=== PATIENT | female | born 1990 | race Hispanic/Latino ===

== ENCOUNTER 2017-07-24 19:47 | Emergency (ER) | payer MEDICAID ==
[2017-07-24] MEDS ORDERED: ONDANSETRON HCL MDV 20ML 2 MG/ML VIAL ONE (20:48)
[2017-07-24] MEDS ORDERED: SODIUM CHLORIDE 0.9% 1000ML 1,000 ML IV ONE (20:49)
[2017-07-24 20:55] LABS: BASOPHILS % (AUTO) 0.6 % (0.0-5.0); EOSINOPHILS % (AUTO) 0.7 % (0.0-8.0); HEMATOCRIT 32.5 % (36-48); LYMPHOCYTES % (AUTO) 20.8 % (21.0-51.0); MEAN CORPUSCULAR VOLUME 70.4 fL (79-99); NEUTROPHILS % (AUTO) 72.9 % (40.0-77.0); PLATELET COUNT (AUTO) 434 K/uL (130-400); RED BLOOD CELL COUNT(AUTO) 4.62 MIL/uL (4.00-5.50); RED CELL DISTRIBUTION WIDTH 16.4 % (11.0-15.5)
[2017-07-24 21:04] LABS: BILIRUBIN,URINE Negative (NEGATIVE); COLOR,URINE Yellow (YELLOW); GLUCOSE, URINE (UA) Negative (NEGATIVE); KETONES,URINE Trace mg/dL (NEGATIVE); LEUKOCYTE ESTERASE ,URINE Negative (NEGATIVE); NITRATE,URINE Negative (NEGATIVE); OCCULT BLOOD,URINE Negative (NEGATIVE); PH,URINE 6.5 (5.0-8.0); PROTEIN,URINE Negative (NEGATIVE)
[2017-07-24 21:05] LABS: CREATININE 0.4 mg/dL (0.5-1.5); POTASSIUM 3.9 mmol/L (3.5-5.1)
[2017-07-24 21:06] LABS: APPEARANCE,URINE CLEAR (CLEAR)
[2017-07-24 21:10] LABS: ALBUMIN 2.4 g/dL (3.5-5.0); BILIRUBIN,TOTAL 0.3 mg/dL (0.2-1.0); TOTAL PROTEIN, SERUM 7.4 g/dL (6.0-8.3)
== END 2017-07-24 23:14 | disposition home or self-care (01) ==
LOC: EDH 19:47
DX: O21.0 Mild hyperemesis gravidarum (principal); Z3A.35 35 weeks gestation of pregnancy
CPT/HCPCS: 36415; 80053; 81003; 85025; 96361; 96374; 99285; J7030

== ENCOUNTER 2017-08-23 18:05 | Inpatient (IN) | payer MEDICAID ==
[~2017-08-23] VITALS: Ht 152.4 cm; Wt 89.8 kg
[2017-08-23 20:00] LABS: APPEARANCE,URINE Clear (CLEAR); BILIRUBIN,URINE Negative (NEGATIVE); COLOR,URINE Yellow (YELLOW); GLUCOSE, URINE (UA) Negative (NEGATIVE); KETONES,URINE 15 mg/dL (NEGATIVE); LEUKOCYTE ESTERASE ,URINE Trace (NEGATIVE); NITRATE,URINE Negative (NEGATIVE); OCCULT BLOOD,URINE Negative (NEGATIVE); PH,URINE 5.5 (5.0-8.0); PROTEIN,URINE Negative (NEGATIVE)
[2017-08-23 20:13] LABS: BACTERIA,URINE Few /HPF (None Seen); MUCUS,URINE Few LPF (None Seen)
[2017-08-23 20:14] LABS: RBC,URINE None Seen /HPF (0-1); WBC,URINE 0-1 /HPF (0-1)
[2017-08-23 20:22] LABS: HEMATOCRIT 31.7 % (36-48); MEAN CORPUSCULAR HEMOGLOBIN 22.9 pg (27.0-33.0); MEAN CORPUSCULAR HGB CONC 33.5 g/dL (32.0-36.0); MEAN CORPUSCULAR VOLUME 68.3 fL (79-99); PLATELET COUNT (AUTO) 398 K/uL (130-400); RED BLOOD CELL COUNT(AUTO) 4.64 MIL/uL (4.00-5.50); WHITE BLOOD COUNT (AUTO) 13.8 K/uL (4.8-10.8)
[2017-08-23 21:01] VITALS: BP 133/82
[2017-08-23] MEDS ORDERED: PREN-196 PO (21:05)
[2017-08-23] MEDS ORDERED: DINOPROSTONE 10 MG VAGINAL SUPP ONE (21:06)
[2017-08-23] MEDS ORDERED: LACTATED RINGERS 1000ML 1,000 ML IV ONE (21:07)
[2017-08-23] MEDS ORDERED: DINOPROSTONE 10 MG VAGINAL SUPP VG ONE (21:30)
[2017-08-23] MEDS: LACTATED RINGERS 1000ML 1,000 ML IV PRN (23:35)
[2017-08-24] MEDS ORDERED: BUTORPHANOL TARTRATE 2 MG/ML ONE (01:11)
[2017-08-24] MEDS ORDERED: ROPIVACAINE 0.2%200ML EPIDURAL 200 ML EP SCH (01:15)
[2017-08-24] MEDS ORDERED: LACTATED RINGERS 500 ML 500 ML IV PRN (01:15)
[2017-08-24] MEDS ORDERED: NALOXONE HCL 0.4 MG/1 ML ML IV PRN (01:15)
[2017-08-24] MEDS ORDERED: EPHEDRINE SULFATE 50 MG/ML AMPULE IVP PRN ×2 (01:15→20:15)
[2017-08-24] MEDS ORDERED: BUTORPHANOL TARTRATE 2 MG/ML IVP PRN (01:15)
[2017-08-24] MEDS ORDERED: OXYTOCIN 10 USP UNITS/ML 20 UNIT in LACTATED RINGERS 1000ML 1,000 ML IV SCH (06:00)
[2017-08-24] MEDS ORDERED: LACTATED RINGERS 1000ML 1,000 ML IV ONE ×2 (07:19→16:09)
[2017-08-24] MEDS ORDERED: OXYTOCIN 10 USP UNITS/ML ONE ×2 (07:20→16:09)
[2017-08-24] MEDS ORDERED: LACTATED RINGERS 1000ML 1,000 ML IV SCH (13:15)
[2017-08-24] MEDS ORDERED: CEFAZOLIN SODIUM 1 GM VIAL IVP PRN (13:15)
[2017-08-24] MEDS ORDERED: CEFAZOLIN SODIUM 1 GM VIAL ONE (13:27)
[2017-08-24] MEDS ORDERED: FENTANYL CITRATE PF 50 MCG/1 ML 2ML VIAL ONE (13:42)
[2017-08-24] MEDS ORDERED: DURAMORPH PF1 MG/ML 10ML AMP IV ONE (13:43)
[2017-08-24] MEDS ORDERED: SENSORCAINE/DEXT/PF 0.75% 2ML AMP IJ ONE (13:46)
[2017-08-24] MEDS ORDERED: CEFAZOLIN SODIUM 1 GM VIAL IVP ONE (13:55)
[2017-08-24] MEDS ORDERED: PHENYLEPHRINE HCL 10 MG/ML 1ML VIAL IV ONE (14:52)
[2017-08-24] MEDS ORDERED: OXYTOCIN-LR 20 UNITS/1000 ML 1,000 ML IV PRN (15:06)
[2017-08-24] MEDS ORDERED: SODIUM CHLORIDE 0.9% 10 ML VIAL IVP PRN (15:15)
[2017-08-24] MEDS ORDERED: MEPERIDINE-PF 75 MG/ML SYG IM PRN (15:15)
[2017-08-24] MEDS ORDERED: PROMETHAZINE HCL 25 MG/ML 1ML AMPULE IM PRN ×2 (15:15→20:15)
[2017-08-24] MEDS ORDERED: DEXTROSE 5 %-0.45 % NACL 1,000 ML IV PRN (15:15)
[2017-08-24 16:30] VITALS: BP 127/72
[2017-08-24 20:07] VITALS: BP 132/69
[2017-08-24] MEDS ORDERED: MORPHINE SULFATE 2 MG/ML 1ML SYG IVP PRN (20:15)
[2017-08-24] MEDS ORDERED: DiphenhydrAMINE HCL 50 MG/ML VIAL IVP PRN (20:15)
[2017-08-24] MEDS ORDERED: ONDANSETRON HCL MDV 20ML 8 MG in SODIUM CHLORIDE 0.9% 50 ML IVP PRN (20:15)
[2017-08-24] MEDS ORDERED: HYDROCODONE/ACETAMINOPHEN 5/325 MG TAB PO PRN ×2 (20:15)
[2017-08-24] MEDS ORDERED: METOCLOPRAMIDE 10 MG/2 ML VIAL IVP PRN (20:15)
[2017-08-24] MEDS ORDERED: ONDANSETRON HCL 4 MG/2 ML VIAL IVP PRN (20:15)
[2017-08-24] MEDS ORDERED: ONDANSETRON HCL MDV 20ML 2 MG/ML VIAL IVP PRN (20:15)
[2017-08-24] MEDS ORDERED: NALOXONE HCL 0.4 MG/1 ML ML IVP PRN (20:15)
[2017-08-24 23:26] VITALS: BP 109/61
[2017-08-25] MEDS: LACTATED RINGERS 1000ML 1,000 ML IV PRN (04:16)
[2017-08-25 04:29] VITALS: BP 110/67
[2017-08-25 06:50] LABS: HEMATOCRIT 22.8 % (36-48); MEAN CORPUSCULAR HEMOGLOBIN 23.7 pg (27.0-33.0); MEAN CORPUSCULAR VOLUME 67.6 fL (79-99); PLATELET COUNT (AUTO) 266 K/uL (130-400); RED BLOOD CELL COUNT(AUTO) 3.37 MIL/uL (4.00-5.50); RED CELL DISTRIBUTION WIDTH 16.5 % (11.0-15.5); WHITE BLOOD COUNT (AUTO) 11.2 K/uL (4.8-10.8)
[2017-08-25 07:51] VITALS: BP 102/77
[2017-08-25 08:21] LABS: HEPATITIS Bs ANTIGEN SCREEN P Negative (Negative)
[2017-08-25] MEDS ORDERED: DIPHENHYDRAMINE HCL 25 MG CAPSULE PO PRN (09:00)
[2017-08-25] MEDS ORDERED: IBUPROFEN 800 MG TAB PO SCH ×2 (09:00→15:15)
[2017-08-25] MEDS ORDERED: ACETAMINOPHEN-CODEINE 300/30MG TAB PO PRN (09:00)
[2017-08-25] MEDS ORDERED: BISACODYL 10 MG SUPP.RECT RC PRN (09:00)
[2017-08-25] MEDS ORDERED: SIMETHICONE 80 MG TAB.CHEW ONE (09:09)
[2017-08-25] MEDS: DOCUSATE SODIUM 100 MG CAP PO SCH ×2 (09:23→20:48)
[2017-08-25] MEDS: IBUPROFEN 100 MG/5 ML SUSP UDCUP PO SCH ×2 (10:20→17:06)
[2017-08-25] MEDS ORDERED: DIPH,PERTUSS(ACELL),TET VAC/PF 0.5 ML VIAL IM SCH (10:30)
[2017-08-25 12:07] VITALS: BP 106/66
[2017-08-25 15:20] VITALS: BP 114/66
[2017-08-25] MEDS ORDERED: DIPH,PERTUSS(ACELL),TET VAC/PF 0.5 ML VIAL IM ONE (17:02)
[2017-08-25 19:30] VITALS: BP 114/67
[2017-08-25 23:17] VITALS: BP 114/67
[2017-08-26] MEDS: IBUPROFEN 100 MG/5 ML SUSP UDCUP PO SCH ×2 (01:59→09:25)
[2017-08-26 03:33] VITALS: BP 130/67
[2017-08-26 07:33] VITALS: BP 122/75
[2017-08-26] MEDS: DOCUSATE SODIUM 100 MG CAP PO SCH (09:20)
[2017-08-26 11:32] VITALS: BP 128/81
== END 2017-08-26 12:00 | disposition home or self-care (01) | DRG 540 ==
LOC: WSH 18:14 → EDSTATUS 08-24 18:05
PROVIDERS: ADMIT Specialist; ATTEND Specialist
PROC: 10D00Z1 Extraction of Products of Conception, Low, Open Approach (ICD-10-PCS; principal; 2017-08-24 13:25)
PROC: 3E0234Z Introduction of Serum, Toxoid and Vaccine into Muscle, Percutaneous Approach (ICD-10-PCS; 2017-08-25)
DX: O69.81X0 Labor and delivery complicated by cord around neck, without compression, not applicable or unspecified (principal); O24.420 Gestational diabetes mellitus in childbirth, diet controlled; O76 Abnormality in fetal heart rate and rhythm complicating labor and delivery; Z37.0 Single live birth; Z3A.40 40 weeks gestation of pregnancy; Z23 Encounter for immunization
CPT/HCPCS: 36415; 59510; 81001; 82948; 85027; 86592; 86850; 86900; 86901; 87340; 90715; A4344; A4606; J0595; J0690; J2274; J2370; J2590; J3010; J3490; J7120